=== PATIENT | female | born 1990 | race Caucasian/White ===

== ENCOUNTER → 2020-03-18 | Outpatient (CLI) | payer OTHER ==
[2020-03-18 10:01] LABS: Calcium 9.2 mg/dL (8.4-10.2); Magnesium 2.1 mg/dL (1.6-2.3)
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
[2020-03-18 16:46] LABS: Hemoglobin A1C 5.2 % (4.0-6.0)
[2020-03-18 19:43] LABS: Folate, Serum 10.9 ng/mL
[2020-03-20 06:15] LABS: Vit B1(Thiamine) 80 ug/L (38-122)
[2020-03-20 06:20] LABS: Vitamin E (Alpha Tocopherol) 760 ug/dL (500-1800)
== END | disposition home or self-care (01) ==
LOC: NEUROMAIN 08:04
PROVIDERS: ATTEND Psychiatry & Neurology Neurology
DX: R41.3 Other amnesia (principal); G89.4 Chronic pain syndrome
CPT/HCPCS: 82306; 82310; 82550; 82607; 82746; 83036; 83519; 83735; 84207; 84425; 84446; 84590; 84591; 84597; 95819

== ENCOUNTER 2020-03-25 15:46 | Emergency (ER) | payer OTHER ==
[2020-03-25 15:56] VITALS: BP 127/94; PULSE 78; RESP 18; TEMP 97.6
[2020-03-25] MEDS ORDERED: FAMOTIDINE 20 MG/2 ML VIAL IV STA (16:39)
[2020-03-25] MEDS ORDERED: diphenhydrAMINE 50 MG/ML 1 ML VIAL IVP STA (16:39)
[2020-03-25] MEDS ORDERED: SODIUM CHLORIDE 0.9% 1,000 ML IV ONE (16:39)
[2020-03-25] MEDS ORDERED: ONDANSETRON 4 MG/2 ML VIAL IVP STA (16:39)
--- NOTE | 2020-03-25 17:54 | ED ---
General Adult HPI - General Chief complaint: Allergic Reaction Stated complaint: med reaction/SOB & throat swelling Time Seen by Provider: 03/25/20 16:23 Source: patient Mode of arrival: ambulatory Limitations: no limitations - History of Present Illness Initial comments: 30-year-old female presents to the emergency department accompanied by her boyfriend for evaluation of dizziness and sensation of throat tightness, onset just prior to arrival. Patient states she received injections of lidocaine and betamethasone by her neurologist for treatment of her chronic migraines and cervical spine issues this afternoon. Upon arrival patient describes her dizziness as a sensation of the room spinning and reports accompanying nausea. Also states she feels as if her throat is tight and her tongue is thick, though denies difficulty breathing or shortness of breath. Patient denies any recent rash, fever, chills, cough, chest pain, abdominal pain, vomiting, diarrhea, constipation, back pain, numbness, tingling, weakness, hematuria, dysuria, urinary urgency, urinary frequency, headache, visual changes, or any other complaints. - Related Data Home Medications Medication Instructions Recorded Confirmed Butalb/APAP/Caff 50-325-40Mg 1 tab PO DAILY PRN 03/25/20 03/25/20 [Fioricet 50-325-40] Cetirizine HCl [Zyrtec] 10 mg PO HS 03/25/20 03/25/20 Cyanocobalamin [Vitamin B-12 1,000 mcg SQ Q30D 03/25/20 03/25/20 Injection] Ibuprofen 800 mg PO DAILY PRN 03/25/20 03/25/20 Trimethobenzamide HCl [Tigan] 300 mg PO DAILY PRN 03/25/20 03/25/20 clonazePAM [KlonoPIN] 2 mg PO DAILY 03/25/20 03/25/20 methocarbamoL [Robaxin] 750 mg PO TID 03/25/20 03/25/20 Allergies Allergy/AdvReac Type Severity Reaction Status Date / Time lamotrigine [From Lamictal] Allergy Rash/Hives Verified 03/25/20 17:33 levetiracetam [From Keppra] Allergy Unknown Verified 03/25/20 17:33 prednisone Allergy Swelling Verified 03/25/20 17:33 Review of Systems ROS Statement: Those systems with pertinent positive or pertinent negative responses have been documented in the HPI. ROS Other: All systems not noted in ROS Statement are negative. Past Medical History Past Medical History: No Reported History Additional Past Medical History / Comment(s): Hives, nerve pain History of Any Multi-Drug Resistant Organisms: None Reported Additional Past Surgical History / Comment(s): LEAP Past Psychological History: Anxiety, Depression, PTSD Smoking Status: Former smoker Past Alcohol Use History: Occasional Past Drug Use History: Marijuana General Exam Limitations: no limitations (Well-developed, well-nourished female in no acute distress. Initial temperature 97.6F, pulse 78, respirations 18, blood pressure 127/94, pulse ox 100% on room air.) General appearance: alert, in no apparent distress Head exam: Present: atraumatic, normocephalic, normal inspection, other (Denies any headache pain or injection site discomfort) Neck exam: Present: normal inspection. Absent: tenderness, meningismus, lymphadenopathy Respiratory exam: Present: normal lung sounds bilaterally. Absent: respiratory distress, wheezes, rales, rhonchi, stridor Cardiovascular Exam: Present: regular rate, normal rhythm, normal heart sounds. Absent: systolic murmur, diastolic murmur, rubs, gallop, clicks GI/Abdominal exam: Present: soft, normal bowel sounds. Absent: distended, tenderness, guarding, rebound, rigid Course Vital Signs 03/25/20 03/25/20 15:53 16:25 Temperature 97.6 F Pulse Rate 78 Respiratory 18 18 Rate Blood Pressure 127/94 O2 Sat by Pulse 100 Oximetry Medical Decision Making - Medical Decision Making 30 year-old female patient presents to the emergency department for evaluation of possible allergic reaction. Just prior to arrival patient had betamethasone injections in her neck for chronic nerve pain. Shortly after the injection she developed dizziness, thickness in her throat and review of her mouth. States that she had had a similar reaction to prednisone in the past and was concern for ALLERGIC reaction so she presented here for further evaluation. Physical examination did reveal normal-appearing oropharynx no lip or tongue swelling. Lungs are clear to auscultation with good air movement. She is tolerating secretions. IV fluids, Benadryl and Pepcid. Upon reevaluation she states her symptoms are 99% improved. Denies any current dizziness or difficulty breathing. We will discharge her home with instructions to continue Benadryl and Pepcid every 6 hours, she would like to obtain is [id number]. She is instructed to follow-up with her primary care physician and neurologist for recheck in 1-2 days. Return parameters were discussed in detail. She verbalizes understanding and agrees with this plan. Disposition Clinical Impression: Allergic reaction Disposition: HOME SELF-CARE Condition: Good Instructions (If sedation given, give patient instructions): General Allergic Reaction (ED) Additional Instructions: Take Pepcid 20 mg once daily, Benadryl 25-50 mg every 6 hours as needed, and follow-up with your neurologist for a recheck. Return to emergency department with any new, worsening, or concerning symptoms. Is patient prescribed a controlled substance at d/c from ED?: No Referrals: Jana Oh MD [Primary Care Provider] - 1-2 days Time of Disposition: 18:03
== END 2020-03-25 18:12 | disposition home or self-care (01) ==
LOC: EC 15:46
DX: T78.40XA Allergy, unspecified, initial encounter (principal); F41.9 Anxiety disorder, unspecified; Z79.899 Other long term (current) drug therapy; Z88.8 Allergy status to other drugs, medicaments and biological substances; Z87.891 Personal history of nicotine dependence
CPT/HCPCS: 99283; 96374; 96375 ×2; 96361; J1200; J2405

== ENCOUNTER → 2020-09-02 | Outpatient (CLI) | payer OTHER ==
--- NOTE | 2020-09-02 14:15 | XR ---
EXAMINATION TYPE: XR cervical spine w flex/ext DATE OF EXAM: 09/02/2020 TECHNIQUE: Frontal, lateral, oblique, flexion and extension lateral swimmers, and open mouth view of the cervical spine are obtained. HISTORY: M50.122 cervical disc disorder COMPARISON: None FINDINGS: The cervical spine is visualized from C1 thru the inferior C7 level, it is satisfactory in alignment without evidence of acute fracture or dislocation. The pre-vertebral soft tissue appears within normal limits. The C1-C2 articulation is within normal limits on the open mouth view. Postsur gical change with metallic disc spacer C5-C6 level. Vertebral body heights and disc space heights are satisfactory above and below surgical levels. There is satisfactory flexion and extension without fo ozzy subluxation or increased disc space narrowing. The oblique images are within normal limits. Overl megan soft tissue is unremarkable. IMPRESSION: As above.
== END | disposition home or self-care (01) ==
LOC: RADXRMAIN 13:34
PROVIDERS: ATTEND Neurological Surgery
DX: M50.30 Other cervical disc degeneration, unspecified cervical region (principal)
CPT/HCPCS: 72052

== ENCOUNTER → 2020-12-30 | Outpatient (CLI) | payer OTHER ==
--- NOTE | 2020-12-30 14:45 | XR ---
EXAMINATION TYPE: XR cervical spine w flex/ext DATE OF EXAM: 12/30/2020 COMPARISON: 09/02/2020 HISTORY: Cervical disc disorder TECHNIQUE: 5 view cervical spine supplemented with flexion and extension views FINDINGS: Disc spacers present at C5-C6. Vertebral body alignment is normal. Prevertebral space joyce l. Posterior spinal lamellar line is intact. Alignment appears preserved through flexion and extensio n. Right Foramen are patent. Mild diffuse narrowing of the upper and mid cervical spine and left fora men may be present. Findings are stable from comparison. IMPRESSION: 1. Stable appearance cervical spine post C5-6 disc replacement. 2. Mild stable foraminal narrowing left foramen discussed above.
== END | disposition home or self-care (01) ==
LOC: RADXRMAIN 12:09
PROVIDERS: ATTEND Neurological Surgery
DX: M99.71 Connective tissue and disc stenosis of intervertebral foramina of cervical region (principal)
CPT/HCPCS: 72052

== ENCOUNTER 2021-04-16 10:02 | Emergency (ER) | payer OTHER ==
[2021-04-16 10:06] VITALS: BP 115/80; PULSE 78; RESP 18; TEMP 98.4
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
== END 2021-04-16 11:09 | disposition home or self-care (01) ==
LOC: EC 10:02
DX: S06.0X0A Concussion without loss of consciousness, initial encounter (principal); F41.9 Anxiety disorder, unspecified; F32.A Depression, unspecified; F43.12 Post-traumatic stress disorder, chronic; F12.90 Cannabis use, unspecified, uncomplicated; Z88.1 Allergy status to other antibiotic agents; Z87.891 Personal history of nicotine dependence; V43.62XA Car passenger injured in collision with other type car in traffic accident, initial encounter; Y92.410 Unspecified street and highway as the place of occurrence of the external cause
CPT/HCPCS: 70450; 72125; 99284

== ENCOUNTER → 2021-07-14 | Outpatient (CLI) | payer OTHER ==
--- NOTE | 2021-07-14 16:41 | XR ---
Lumbar spine with flexion and extension views HISTORY: M43.16 M51.16 7 views of lumbosacral spine There is a spinal curvature centered at L4 convex left, no evident spondylolysis. Retrolisthesis grad e 1 L5-S1. Sclerosis in the posterior elements of the lumbar spine consistent with facet arthropathy. Loss of disc height present L5-S1 with associated vacuum phenomenon. There is multilevel spondylosis . Lumbar vertebral bodies show preserved height and bone mineralization. No significant change in ali gnment on flexion and extension views. IMPRESSION: Degenerative disc disease and facet arthropathy. Consider lumbar MRI.
== END | disposition home or self-care (01) ==
LOC: RADXRMAIN 14:25
PROVIDERS: ATTEND Neurological Surgery
DX: M51.16 Intervertebral disc disorders with radiculopathy, lumbar region (principal); M47.26 Other spondylosis with radiculopathy, lumbar region; M43.16 Spondylolisthesis, lumbar region
CPT/HCPCS: 72114

== ENCOUNTER → 2021-09-01 | Outpatient (CLI) | payer OTHER ==
[2021-09-01 11:21] LABS: Partial Thromboplastin Time 24.7 sec (22.0-30.0)
[2021-09-01 11:42] LABS: Appearance,Urine Clear (Clear); Bilirubin,Urine Negative (Negative); Blood,Urine Negative (Negative); Color,Urine Light Yellow; Glucose,Urine (UA) Negative (Negative); Ketones,Urine Negative (Negative); Leukocyte Esterase,Urine Negative (Negative); Nitrite,Urine Negative (Negative); PH, Urine 5.5 (5.0-8.0); Protein,Urine Negative (Negative); Specific Gravity,Urine 1.007 (1.001-1.035); Urobilinogen,Urine <2.0 mg/dL (<2.0)
[2021-09-01 14:37] LABS: Basophils # (A) 0.06 X 10*3/uL (0.00-0.10); Basophils % (A) 0.7 %; Eosinophils # (A) 0.18 X 10*3/uL (0.04-0.35); Eosinophils % (A) 2.1 %; HCT 43.7 % (37.2-46.3); Immature Grans, Automated 0.2 %; Lymphocytes # (A) 2.39 X 10*3/uL (0.90-5.00); Lymphocytes % (A) 28.3 %; MCH 31.8 pg (27.0-32.0); MCV 99.3 fL (80.0-97.0); Mean Platelet Volume 12.6 fL (9.5-12.2); Monocytes # (A) 0.49 X 10*3/uL (0.20-1.00); Monocytes % (A) 5.8 %; NRBC Per 100 WBC 0 /100 WBCS (0.0-0.0); Neutrophils % (A) 62.9 %; Platelet Count 255 X 10*3/uL (140-440); RDW 11.9 % (11.5-14.5); WBC 8.44 X 10*3/uL (4.50-10.00)
[2021-09-01 20:08] LABS: ALT 6 U/L (8-44); AST 17 U/L (13-35); African American GFR (CKD) 112.3 (60.0-200.0); Albumin 4.7 g/dL (3.8-4.9); Albumin/Globulin Ratio 1.74 (1.60-3.17); Alkaline Phosphatase 62 U/L (41-126); Blood Urea Nitrogen 10.4 mg/dL (9.0-27.0); Calcium 9.6 mg/dL (8.7-10.3); Carbon Dioxide 21.9 mmol/L (20.0-27.5); Chloride 103 mmol/L (96-109); Globulin 2.7 g/dL (1.6-3.3); Glucose 83 mg/dL (70-110); Non-African American GFR(CKD) 96.9 (60.0-200.0); Sodium 138 mmol/L (135-145); Total Bilirubin <0.15 mg/dL (0.30-1.20); Total Protein 7.4 g/dL (6.2-8.2)
== END | disposition home or self-care (01) ==
LOC: LABWHC1 09:37
PROVIDERS: ATTEND Neurological Surgery
DX: M51.16 Intervertebral disc disorders with radiculopathy, lumbar region (principal)
CPT/HCPCS: 36415; 80053; 81003; 83036; 85025; 85610; 85730; 87070